=== PATIENT | male | born 1990 | race Caucasian/White ===

== ENCOUNTER 2019-11-14 22:34 | Emergency (ER) | payer SELFPAY ==
[2019-11-14 22:36] VITALS: BP 147/90; PULSE 79; RESP 16; TEMP 36.3; O2SAT 97; BMI 23.7
--- NOTE | 2019-11-14 23:14 | ED.DCSUM_ITS ---
- ER Visit Summary Date of Service: 11/14/19 Chief Complaint: [Dental pain] History of Present Illness: The patient is a 29 M [presents the emergency department complaint abdominal pain is here about a year ago. Patient states that he has some broken teeth left upper that he saw dentist about and was told he needed root canals but never scheduled or followed up. Patient states he has had some low-grade pain off-and-on but the pain became more severe today. He denies any fever. Patient has no primary care physician currently.] Physical Examination: [HEENT-PERRLA, EOMI. Cranial nerves II through XII grossly intact. TMs clear. Mucous membranes moist. No adenopathy. Dentition- patient has broken and carried left upper molars numbers 14 and 15. Teeth are tender to palpation. There is no gingival abscess noted. Facial cellulitis. Cardiovascular-regular rate and rhythm without murmur or ectopy Lungs-clear to auscultation, chest wall stable without crepitus or subcu emphysema Abdomen-normoactive bowel sounds, soft, nontender, no rebound or rigidity, no peritoneal signs. Extremities-intact ?4, normal range of motion, normal pulses, atraumatic] Test Results: [None indicated] Emergency Department Course and Treatment: [Patient will be started on amoxicillin and given Mesick for pain] Treatment Plan: [Amoxicillin and Mesick for pain. Patient will be referred to dentistry for follow-up.] Disposition: [Discharged home in stable condition] Impression: [Dental pain secondary to dental caries] This note was generated with [employer] dictation software. It may contain incorrect words, spelling, and punctuation that were not noted in review of the chart prior to signing ED Disposition - Plan for ED Patient: Referrals: Care Physician,No Primary [Primary Care Provider] -
--- NOTE | 2019-11-14 23:16 | ED.DEP ---
ED Disposition - Plan for ED Patient: Instructions: ED [facility] Dental Prescriptions: Amoxicillin 500 mg PO TID #30 tab Prescription Printed Hydrocodone Bitart/Apap 5-325 [[place] 5MG-325MG] 1 tab PO Q4H PRN PRN 2 Days #10 tab PRN Reason: Pain Prescription Printed Referrals: Care Physician,No Primary [Primary Care Provider] - Additional Instructions: see a dentist
[2019-11-14 23:21] VITALS: BP 147/9; PULSE 79; RESP 16; O2SAT 97
[2019-11-14] MEDS: AMOXICILLIN 500 MG CAPSULE PO (23:24)
== END 2019-11-14 23:26 | disposition home or self-care (01) ==
PROVIDERS: Emergency Provider Emergency Medicine
DX: K02.9 Dental caries, unspecified (principal); S02.5XXA Fracture of tooth (traumatic), initial encounter for closed fracture; X58.XXXA Exposure to other specified factors, initial encounter; L03.211 Cellulitis of face
CPT/HCPCS: 99283